=== PATIENT | female | born 1935 | race Two or more races ===

== ENCOUNTER 2020-08-23 01:21 | Emergency (ER) | payer OTHER ==
[~2020-08-23] VITALS: Ht 154.9 cm; Wt 61.2 kg
--- NOTE | 2020-08-23 01:21 | NUR ---
TO ER BED 16 BIB [facility] FROM [facility] C/O COUGH CONGESTION, CORE THROAT AND RUNNY NOSE X3 DAYS. PT AAOX4, NO ACUTE DISTRESS NOTED, RESP EVEN AND UNLABORED. PT ABLE TO COUGH UP YELLOWISH SPUTUM. PLACE PT ON CARDIAC MONITORING, CONTINUOUS POX. PENDING ER MD KUO.
--- NOTE | 2020-08-23 02:00 | NUR ---
Note ro in EDM - 08/23/20 at 0214 by TITUS PT AAOX4, NO ACUTE DISTRESS NOTED, RESP EVEN AND UNLABORED. PT ABLE TO COUGH UP YELLOWISH SPUTUM. PLACE PT ON CARDIAC MONITORING, CONTINUOUS POX. PENDING ER MD KUO.
--- NOTE | 2020-08-23 02:00 | NUR ---
Bry starr in EDM - 08/23/20 at 0216 by RICHMOND BIBPA C/O COUGH, CONGESTION, RUNNY NOSE, SORE THROAT X3 DAYS. PT FROM [facility] TO [facility] 16
[2020-08-23 02:09] LABS: BASOPHILS # (AUTO) 0.1 /CMM (0.0-0.2); BASOPHILS % (AUTO) 0.7 % (0.0-2.0); HEMATOCRIT 36 % (33-45); LYMPHOCYTES # (AUTO) 2.3 /CMM (0.8-4.8); LYMPHOCYTES % (AUTO) 21.6 % (20.0-44.0); MEAN CORPUSCULAR HGB CONC 34 g/dl (31.0-36.0); MEAN CORPUSCULAR VOLUME 95 fL (82-100); MONOCYTES % (AUTO) 9.3 % (2.0-12.0); NEUTROPHILS # (AUTO) 7.1 /CMM (1.8-8.9); NEUTROPHILS % (AUTO) 65.4 % (43.0-81.0); PLATELET COUNT (AUTO) 182 /CMM (150-450); RED BLOOD CELL COUNT(AUTO) 3.75 MIL/uL (4.0-5.2); WHITE BLOOD COUNT (AUTO) 10.8 K/uL (4.3-11.0)
--- NOTE | 2020-08-23 02:09 | NUR ---
flu and covid swab collected and sent to lab
[2020-08-23 02:21] LABS: CALCIUM, SERUM 9.5 mg/dL (8.5-10.1); CARBON DIOXIDE 23 mmol/L (21-32); CHLORIDE 102 mmol/L (98-107); CREATININE 0.9 mg/dL (0.6-1.3); GLUCOSE 112 mg/dL (74-106); POTASSIUM 3.7 mmol/L (3.5-5.1); SODIUM SERUM 137 mmol/L (136-145); UREA NITROGEN, BLOOD 22 mg/dL (7-18)
[2020-08-23 02:38] LABS: ALANINE AMINOTRANSFERASE 21 U/L (12-78); ALBUMIN 3.8 g/dL (3.4-5.0); ALKALINE PHOSPHATASE 69 U/L (46-116); ASPARTATE AMINOTRANSFERASE 18 U/L (15-37); B-TYPE NATRIURETIC PEPTIDE 153 PG/ML (0-125); BILIRUBIN,DIRECT 0.1 mg/dL (0.0-0.2); BILIRUBIN,TOTAL 0.6 mg/dL (0.2-1.0); TOTAL PROTEIN, SERUM 7.7 g/dL (6.4-8.2)
--- NOTE | 2020-08-23 02:57 | NUR ---
LAB CALLED REGARDING NEGATIVE COVID RESULT.
--- NOTE | 2020-08-23 03:09 | NUR ---
[facility] RE[facility]. AWATING CALL BACK FROM MARIO BOSCH MD.
--- NOTE | 2020-08-23 03:10 | NUR ---
NEGRITA STEVENS TALKING TO DR. BRAR REGARDING PT.
[2020-08-23] MEDS ORDERED: GUAIFENESIN/D-METHORPHAN HB 5 ML UDC PO ONE (03:30)
[2020-08-23] MEDS ORDERED: predniSONE 50 MG TABLET PO ONE (03:30)
--- NOTE | 2020-08-23 03:34 | NUR ---
CALLED [facility] FOR TRANSPORTATION BACK TO FACILITY. WILL CALL BACK WITH KIMBERLY
[2020-08-23] MEDS ORDERED: predniSONE 20 MG TABLET ONE (03:37)
[2020-08-23] MEDS ORDERED: predniSONE 10 MG TABLET ONE (03:37)
--- NOTE | 2020-08-23 04:10 | NUR ---
[facility] ETA [id number]
--- NOTE | 2020-08-23 05:05 | NUR ---
SPOKE WITH CHAIATNYA FROM [facility] AND INFORMED PT WILL RETURN TO FACILITY. VERBALIZED UNDERSTANDING
--- NOTE | 2020-08-23 05:17 | NUR ---
TRANSPORT AT BEDSIDE REPORT GIVEN TO EMT.
[2020-08-23 05:19] VITALS: BP 117/56
== END 2020-08-23 05:20 ==
LOC: ER 01:24
DX: J20.9 Acute bronchitis, unspecified (principal); Z20.828 Contact with and (suspected) exposure to other viral communicable diseases; E78.5 Hyperlipidemia, unspecified; F03.90 Unspecified dementia, unspecified severity, without behavioral disturbance, psychotic disturbance, mood disturbance, and anxiety; Z88.6 Allergy status to analgesic agent; Z88.1 Allergy status to other antibiotic agents; R94.31 Abnormal electrocardiogram [ECG] [EKG]
CPT/HCPCS: 36415; 71045; 80048; 80076; 83880; 84145; 84484; 85025; 87040 ×2; 87426; 87804; 93005; 99285; C9803; J7512 ×2; U0003